=== PATIENT | female | born 1940 | race Caucasian/White ===

== ENCOUNTER 2018-05-12 20:30 | Inpatient (IN) | payer MEDICARE, SELFPAY ==
[~2018-05-12] VITALS: Ht 170.2 cm; Wt 84.6 kg
[2018-05-12 21:18] LABS: BASOPHILS ABSOLUTE AUTO 0.01 K/mm3 (0.00-0.23); BASOPHILS PERCENT AUTO 0 % (0-2); EOSINOPHILS ABSOLUTE AUTO 0.06 K/mm3 (0.00-0.68); EOSINOPHILS PERCENT AUTO 1 % (0-6); Hematocrit 43.4 % (33.0-51.0); IMMATURE GRAN ABSOLUTE AUTO 0.01 K/mm3 (0.00-0.10); IMMATURE GRAN PERCENT AUTO 0 % (0-1); LYMPHOCYTES ABSOLUTE AUTO 1.54 K/mm3 (0.84-5.20); LYMPHOCYTES PERCENT AUTO 31 % (21-46); MONOCYTES ABSOLUTE AUTO 0.89 K/mm3 (0.16-1.47); MONOCYTES PERCENT AUTO 18 % (4-13); Mean Corpuscular HGB 31.2 pg (26.0-34.0); Mean Corpuscular HGB Conc 34.6 g/dL (31.5-36.5); Mean Corpuscular Volume 90 fL (80-100); Mean Platelet Volume 10.4 fL (9.1-12.4); NEUTROPHILS ABSOLUTE AUTO 2.49 K/mm3 (1.96-9.15); NEUTROPHILS PERCENT AUTO 50 % (41-73); Platelet Count 144 K/mm3 (150-400); RDW Coefficient Variation 12.7 % (11.7-14.2); RDW Standard Deviation 42.5 fL (35.1-46.3); Red Blood Cell Count 4.81 M/mm3 (3.80-5.20)
[2018-05-12 21:32] LABS: Alanine Aminotransfer (ALT/SGP 31 U/L (12-78); Albumin, Blood 3.7 g/dL (3.4-5.0); Albumin/Globulin Ratio 1.1 (0.8-1.8); Alk Phos 105 U/L (50-136); Anion Gap 8 mmol/L (6-16); Aspartate Aminotrans (AST/SGOT 29 U/L (12-37); Bilirubin, Total 0.5 mg/dL (0.1-1.0); Blood Urea Nitrogen 9 mg/dL (8-24); Bun/Creatinine Ratio 14.2 (12.0-20.0); CO2, Blood 28 mmol/L (21-32); Calcium, Blood 8.8 mg/dL (8.5-10.1); Chloride, Blood 89 mmol/L (98-108); Creatinine, Blood 0.63 mg/dL (0.40-1.00); Globulin, Blood 3.5 g/dL (2.2-4.0); Glomerular Filtration Rate >60 (60-); Glucose, Blood 104 mg/dL (70-99); Potassium, Blood 3.3 mmol/L (3.5-5.5); Sodium, Blood 125 mmol/L (136-145); Total Protein, Blood 7.2 g/dL (6.4-8.2); Troponin I 0.016 ng/mL (0.000-0.040)
[2018-05-12] MEDS ORDERED: PRED20 PO (21:40)
[2018-05-12] MEDS ORDERED: Lotensin40 MG PO (21:41)
[2018-05-12] MEDS ORDERED: Nexium40 MG PO (21:42)
[2018-05-12] MEDS ORDERED: MICROZIDE12.5 M1 PO (21:42)
[2018-05-12] MEDS ORDERED: METO50ER PO (21:43)
[2018-05-12] MEDS ORDERED: POTA8 PO (21:43)
[2018-05-12] MEDS ORDERED: ATOR40TA PO (21:43)
[2018-05-12] MEDS ORDERED: DOXY100 PO (21:44)
[2018-05-12] MEDS ORDERED: NIFE60ER PO (21:44)
[2018-05-12] MEDS ORDERED: ASPI325 PO (21:44)
--- NOTE | 2018-05-13 01:15 | NUR ---
PT ARRIVAL. PT ARRIVED ON THE UNIT APROX 0100. PT A&Ox4, ABLE TO TRANSFER HERSELF FROM THE GURNEY TO THE BED. PT ON RA AT 90%. VS STABLE, HR R IN THE 90'S-100'S, L/S COARSE T/O W/CRACKELS. AFTER ASSESSMENT PT REQUIRED 1L O2. PT HAS TOLERATED THIS WELL WITH O2 STATS >90%. BT PRESENT AND HYPOACTIVE, PT STATES NO BM FOR 5 DAYS. NO EDEMA NOTED ON ASSESSMENT. WILL CONTINUE TO MONITOR.
[2018-05-13 03:43] LABS: Hematocrit 42.2 % (33.0-51.0); Hemoglobin 14.5 g/dL (11.5-16.0); Mean Corpuscular HGB 31.7 pg (26.0-34.0); Mean Corpuscular HGB Conc 34.4 g/dL (31.5-36.5); Mean Corpuscular Volume 92 fL (80-100); Mean Platelet Volume 10.6 fL (9.1-12.4); Platelet Count 111 K/mm3 (150-400); RDW Coefficient Variation 12.7 % (11.7-14.2); RDW Standard Deviation 43.1 fL (35.1-46.3); Red Blood Cell Count 4.58 M/mm3 (3.80-5.20)
[2018-05-13 03:56] LABS: Anion Gap 12 mmol/L (6-16); Blood Urea Nitrogen 9 mg/dL (8-24); CO2, Blood 24 mmol/L (21-32); Calcium, Blood 8.3 mg/dL (8.5-10.1); Chloride, Blood 90 mmol/L (98-108); Creatinine, Blood 0.56 mg/dL (0.40-1.00); Glomerular Filtration Rate >60 (60-); Glucose, Blood 172 mg/dL (70-99); Potassium, Blood 3.1 mmol/L (3.5-5.5); Sodium, Blood 126 mmol/L (136-145)
--- NOTE | 2018-05-13 06:31 | NUR ---
SHIFT SUMMARY. NO ACUTE CHAGENES NOTED. PT'S AM LABS SHOWED LOW POTASSIUM (SEE LABS) PROVIDER CALLED AND ORDERS OBTAINED. PT ALSO STATED HER DESIRE TO BE A FULL CODE. PROVIDER WAS CALLED AND ORDERS OBTAINED TO CHANGE PT FROM DNR TO FULL CODE. CALL LIGHT IN REACH, BED IS LOCKED AND LOW. WILL CONTINUE TO MONITOR UNTIL REPORT IS GIVEN TO ONCOMING RN.
--- NOTE | 2018-05-13 17:20 | NUR ---
SHIFT SUMMARY Assumed care of pt at 0700. Report received from Mi TEJEDA. Pt on 1 LPM SC. No telemetry in place. Pt is medical floor status without telemetry. Pt OOB several times to use bathroom. Steady on feet. Tolerates activity well. Pt removed nasal cannula. Cannula replaced as SpO2 was 87% on room air. Pt assigned to room 338. Report given to medical floor nurse. Pt to be transferred with belongings, chart, and medications when room is ready.
--- NOTE | 2018-05-13 19:10 | NUR ---
PT PCU TRANSFER THIS PM. PT AXO X4. DENIES PAIN. DENIES N/V. DENIES SOB AT REST. DYSPNEA UPON EXERTION. CALL LIGHT IN REACH. BED IN LOWEST POSITION.
--- NOTE | 2018-05-14 05:19 | NUR ---
SHIFT SUMMARY NO ACUTE CHANGES THIS SHIFT. PT CONTINUES ON 2 L O2 NC, SOME SOB W/ EXERTION BUT OVERALL PT FEELS MUCH IMPROVED. LUNG SOUNDS MINIMALLY COARSE IN THE BASES AND DIMINISHED THROUGHOUT. NO COMPLAINTS OF PAIN. VSS. WILL CONTINUE TO MONITOR AND REPORT TO DAY RN.
[2018-05-14 05:43] LABS: Anion Gap 8 mmol/L (6-16); Blood Urea Nitrogen 10 mg/dL (8-24); Bun/Creatinine Ratio 15.8 (12.0-20.0); CO2, Blood 26 mmol/L (21-32); Calcium, Blood 8.4 mg/dL (8.5-10.1); Chloride, Blood 93 mmol/L (98-108); Creatinine, Blood 0.63 mg/dL (0.40-1.00); Glomerular Filtration Rate >60 (60-); Glucose, Blood 144 mg/dL (70-99); Potassium, Blood 3.9 mmol/L (3.5-5.5); Sodium, Blood 127 mmol/L (136-145)
--- NOTE | 2018-05-14 09:21 | NUR ---
PT REPORTS SHE HAS NOT TAKEN PROCARDIA FOR A LONG TIME AT HOME, REFUSED IT THIS AM. DR PEÑALOZA NOTIFIED AND IT HAS BEEN DC'D. PT ALSO REQUESTING MILD STOOL SOFTENER, ORDER RECEIVED FOR COLACE 100MG BID. SODIUM OF 127, PER DR PEÑALOZA GIVE 1L NS AND ENCOURAGE EATING SOLID FOODS.
--- NOTE | 2018-05-14 18:15 | NUR ---
SHIFT SUMMARY- PT A/OX4, INDEP INTO BATHROOM. PT DENIES ANY COMPLAINTS. LS COARSE WITH WHEEZE, ON RA, MINIMAL SOB WITH EXERTION, OCC PROD COUGH OF CLEAR SPUTUM. TRACE BLE. PT CHANGED TO ORAL PREDNISONE, ANTIBIOTICS DC'D. SODIUM OF 127, 1L NS GIVEN, PT WITH INCREASED APPETITE TODAY. COLACE STARTED FOR NO BM. NO OTHER ACUTE CHANGES THIS SHIFT.
--- NOTE | 2018-05-15 04:10 | NUR ---
SHIFT SUMMARY LUNG SOUNDS CONTINUE TO BE COARSE AND WHEEZY THROUGHOUT. PT HAS MOSTLY NON PRODUCTIVE INTERMITTENT DRY NAGGING COUGH. PT ON RA W/ O2 SATS IN THE LOW TO MID 90'S. PT HAD UNEVENFUL NIGHT. SLEEPING ON AND OFF THROUGHOUT THE NIGHT. NO COMPLAINTS OF PAIN OR DISCOMFORT. VSS. OTHERWISE NO ACUE CHANGES. WILL CONTINUE TO MONITOR AND REPORT TO DAY RN.
[2018-05-15] MEDS ORDERED: NIFE60ER PO (07:37)
--- NOTE | 2018-05-15 09:20 | NUR ---
PT REPORTS SHE WAS CONFUSED YESTERDAY AND DOES TAKE NIFEDIPINE OR PROCARDIA AT HOME, DR PEÑALOZA NOTIFIED AND PLACED BACK ON MEDICATION.
--- NOTE | 2018-05-15 16:34 | NUR ---
SHIFT SUMMARY- PT A/O X4, INDEP IN ROOM. PT DENIES ANY COMPLAINTS T/O SHIFT. MILD SOB WITH EXERTION, LS COARSE WITH WHEEZES, OCC PRODUCTIVE COUGH WITH YELLOW SPPUTUM. PT REMAINS ON RA. POSS D/C HOME TOMORROW. NO OTHER ACUTE CHANGES THIS SHIFT.
--- NOTE | 2018-05-16 05:26 | NUR ---
SHIFT SUMMARY NO ACUTE CHANGES OVERNIGHT. PT CONTINUES TO DO WELL ON RA WITH O2 SATS AT 93%. BLOOD PRESSURE IMPROVED AT START OF SHIFT BUT HIGH AGAIN THIS AM. HOME BLOOD PRESSURE MED RESTARTED YESTERDAY, WILL MONITOR. NO COMPLAINTS OF PAIN. VERY MINIMAL SOB W/ EXERTION. PLAN FOR PT TO D/C HOME TODAY.
[2018-05-16] MEDS ORDERED: DELTASONE20 MG PO (10:44)
[2018-05-16] MEDS ORDERED: BUDE6HFA INH (10:45)
--- NOTE | 2018-05-16 11:25 | NUR ---
SHIFT SUMMARY/DC PT HAS HAD NO ACUTE CHANGES THIS SHIFT, NO COMPLAINTS OF ANY KIND. REVIEWED DC INSTRUCTIONS W/PT WHO VERBALIZED UNDERSTANDING. PT WAS TRANSPORTED VIA W/C TO DC IN PRIVATE VEHICLE @ [id number]
== END 2018-05-16 11:22 | disposition home or self-care (01) | DRG 202 ==
LOC: DELPENDDIS → ER 20:30 → PCU 23:35 → MEDS 05-13 18:02 → ENPENDDIS 05-15 09:32 → MEDS 05-16 11:22
PROVIDERS: Emergency Medicine; Hospitalist; Nurse Practitioner Acute Care; ADMIT Internal Medicine
DX: J45.901 Unspecified asthma with (acute) exacerbation (principal); E87.1 Hypo-osmolality and hyponatremia; I10 Essential (primary) hypertension; D69.6 Thrombocytopenia, unspecified; K21.9 Gastro-esophageal reflux disease without esophagitis; E87.6 Hypokalemia; E78.5 Hyperlipidemia, unspecified; F17.210 Nicotine dependence, cigarettes, uncomplicated; Z66 Do not resuscitate; Z79.52 Long term (current) use of systemic steroids; Z79.82 Long term (current) use of aspirin; Z79.899 Other long term (current) drug therapy
CPT/HCPCS: 36415; 71046; 80048; 80053; 83605; 83880; 84145; 84484; 85025; 85027; 87040; 93005; 93010; 94640; 94760; 94761; 96365; 96367; 96375; 99285-25; J0456; J0696; J2405; J2930; J3480; J7030; J7050; J7120

== ENCOUNTER 2019-01-05 14:29 | Emergency (ER) | payer MEDICARE, OTHER ==
[~2019-01-05] VITALS: Ht 170.2 cm; Wt 86.2 kg
[~2019-01-05 14:29] MED LIST: ASPI325 PO; ATOR40TA PO; BUDE6HFA INH; DELTASONE20 MG PO; DOXY100 PO; Lotensin40 MG PO; METO50ER PO; MICROZIDE12.5 M1 PO; NIFE60ER PO; Nexium40 MG PO; POTA8 PO; PRED20 PO
[2019-01-05] MEDS ORDERED: HYDCHL12.5 PO (14:45)
[2019-01-05] MEDS ORDERED: Cephalexin500 MG PO (14:45)
[2019-01-05] MEDS ORDERED: Benazepril HCl40 MG PO (14:46)
[2019-01-05 14:50] LABS: Source, Urine Clean Catch
[2019-01-05 15:02] LABS: BASOPHILS ABSOLUTE AUTO 0.04 K/mm3 (0.00-0.23); BASOPHILS PERCENT AUTO 0 % (0-2); EOSINOPHILS PERCENT AUTO 2 % (0-6); Hemoglobin 14.2 g/dL (11.5-16.0); IMMATURE GRAN ABSOLUTE AUTO 0.05 K/mm3 (0.00-0.10); IMMATURE GRAN PERCENT AUTO 1 % (0-1); LYMPHOCYTES ABSOLUTE AUTO 2.04 K/mm3 (0.84-5.20); LYMPHOCYTES PERCENT AUTO 19 % (21-46); MONOCYTES PERCENT AUTO 10 % (4-13); Mean Corpuscular HGB 31.3 pg (26.0-34.0); Mean Corpuscular HGB Conc 33.8 g/dL (31.5-36.5); Mean Corpuscular Volume 93 fL (80-100); Mean Platelet Volume 9.9 fL (9.1-12.4); NEUTROPHILS ABSOLUTE AUTO 7.58 K/mm3 (1.96-9.15); NEUTROPHILS PERCENT AUTO 69 % (41-73); Platelet Count 201 K/mm3 (150-400); RDW Coefficient Variation 13.2 % (11.7-14.2); RDW Standard Deviation 45.3 fL (35.1-46.3); Red Blood Cell Count 4.53 M/mm3 (3.80-5.20); White Blood Cell Count 11.01 K/mm3 (4.00-11.30)
[2019-01-05 15:03] LABS: Bilirubin, Urine Neg (Neg); Blood, Urine 3+ (Neg); Glucose Qualitative, Urine Neg (Neg); Ketones, Urine Neg (Neg); Leukocyte Esterase, Urine Neg (Neg); Nitrite, Urine Neg (Neg); Protein, Urine Neg (Neg); Urobilinogen, Urine NORM (Normal)
[2019-01-05 15:05] LABS: Alanine Aminotransfer (ALT/SGP 25 U/L (12-78); Albumin, Blood 3.6 g/dL (3.4-5.0); Alk Phos 112 U/L (50-136); Anion Gap 6 mmol/L (6-16); Aspartate Aminotrans (AST/SGOT 22 U/L (12-37); Bilirubin, Total 0.6 mg/dL (0.1-1.0); Blood Urea Nitrogen 13 mg/dL (8-24); Bun/Creatinine Ratio 15.9 (12.0-20.0); CO2, Blood 26 mmol/L (21-32); Calcium, Blood 8.9 mg/dL (8.5-10.1); Chloride, Blood 99 mmol/L (98-108); Creatinine, Blood 0.82 mg/dL (0.40-1.00); Globulin, Blood 3.5 g/dL (2.2-4.0); Glomerular Filtration Rate >60 (60-); Glucose, Blood 147 mg/dL (70-99); Potassium, Blood 3.6 mmol/L (3.5-5.5); Sodium, Blood 131 mmol/L (136-145); Total Protein, Blood 7.1 g/dL (6.4-8.2); Troponin I <0.015 ng/mL (0.000-0.040)
[2019-01-05 15:14] LABS: Appearance, Urine Clear (Clear); Color, Urine Yellow (P-Yellow)
[2019-01-05 15:15] LABS: Bacteria Not Seen /hpf; Mucus Light (0-Heavy); Squamous Epithelial Cells Not Seen /hpf (Few); White Blood Cells, Urine 0-2 /hpf (0-5)
== END 2019-01-05 16:15 | disposition home or self-care (01) ==
LOC: ER 14:29
PROVIDERS: Physician Assistant
DX: G45.9 Transient cerebral ischemic attack, unspecified (principal); J45.909 Unspecified asthma, uncomplicated; I71.4 Abdominal aortic aneurysm, without rupture; R01.1 Cardiac murmur, unspecified; Z79.899 Other long term (current) drug therapy; Z79.82 Long term (current) use of aspirin; Z87.891 Personal history of nicotine dependence
CPT/HCPCS: 36415; 70450; 80053; 81001; 84484; 85025; 93005; 93010; 96360; 99284-25; J7030

== ENCOUNTER 2019-01-30 20:14 | Emergency (ER) | payer MEDICARE, OTHER ==
[~2019-01-30] VITALS: Ht 170.2 cm; Wt 86.2 kg
[~2019-01-30 20:14] MED LIST changes: +Benazepril HCl40 MG PO; +Cephalexin500 MG PO; +HYDCHL12.5 PO
[2019-01-30] MEDS ORDERED: OMEP20ER PO (20:52)
== END 2019-01-30 21:19 | disposition home or self-care (01) ==
LOC: ER 20:14
DX: T50.2X1A Poisoning by carbonic-anhydrase inhibitors, benzothiadiazides and other diuretics, accidental (unintentional), initial encounter (principal); T50.3X1A Poisoning by electrolytic, caloric and water-balance agents, accidental (unintentional), initial encounter; T44.7X1A Poisoning by beta-adrenoreceptor antagonists, accidental (unintentional), initial encounter; T46.4X1A Poisoning by angiotensin-converting-enzyme inhibitors, accidental (unintentional), initial encounter; J45.909 Unspecified asthma, uncomplicated; F17.200 Nicotine dependence, unspecified, uncomplicated; Z79.899 Other long term (current) drug therapy; Z79.84 Long term (current) use of oral hypoglycemic drugs; Z79.82 Long term (current) use of aspirin
CPT/HCPCS: 99283

== ENCOUNTER 2019-03-21 05:09 | Emergency (ER) | payer MEDICARE, OTHER ==
[~2019-03-21] VITALS: Ht 170.2 cm; Wt 88.9 kg
[~2019-03-21 05:09] MED LIST changes: +OMEP20ER PO
[2019-03-21 05:33] LABS: BASOPHILS ABSOLUTE AUTO 0.05 K/mm3 (0.00-0.23); BASOPHILS PERCENT AUTO 1 % (0-2); EOSINOPHILS ABSOLUTE AUTO 0.15 K/mm3 (0.00-0.68); EOSINOPHILS PERCENT AUTO 2 % (0-6); Hematocrit 41.4 % (33.0-51.0); Hemoglobin 13.9 g/dL (11.5-16.0); IMMATURE GRAN ABSOLUTE AUTO 0.03 K/mm3 (0.00-0.10); IMMATURE GRAN PERCENT AUTO 0 % (0-1); LYMPHOCYTES ABSOLUTE AUTO 2.13 K/mm3 (0.84-5.20); LYMPHOCYTES PERCENT AUTO 31 % (21-46); MONOCYTES PERCENT AUTO 12 % (4-13); Mean Corpuscular HGB 31.2 pg (26.0-34.0); Mean Corpuscular HGB Conc 33.6 g/dL (31.5-36.5); Mean Corpuscular Volume 93 fL (80-100); Mean Platelet Volume 9.8 fL (9.1-12.4); NEUTROPHILS ABSOLUTE AUTO 3.64 K/mm3 (1.96-9.15); NEUTROPHILS PERCENT AUTO 54 % (41-73); Platelet Count 201 K/mm3 (150-400); RDW Coefficient Variation 13.2 % (11.7-14.2); Red Blood Cell Count 4.46 M/mm3 (3.80-5.20)
[2019-03-21 05:59] LABS: Alanine Aminotransfer (ALT/SGP 19 U/L (12-78); Albumin, Blood 3.8 g/dL (3.4-5.0); Albumin/Globulin Ratio 1.1 (0.8-1.8); Alk Phos 107 U/L (50-136); Anion Gap 6 mmol/L (6-16); Aspartate Aminotrans (AST/SGOT 16 U/L (12-37); Bilirubin, Total 0.3 mg/dL (0.1-1.0); Blood Urea Nitrogen 14 mg/dL (8-24); Bun/Creatinine Ratio 15.3 (12.0-20.0); CO2, Blood 29 mmol/L (21-32); Calcium, Blood 9.1 mg/dL (8.5-10.1); Chloride, Blood 100 mmol/L (98-108); Creatinine, Blood 0.91 mg/dL (0.40-1.00); Globulin, Blood 3.5 g/dL (2.2-4.0); Glomerular Filtration Rate >60 (60-); Glucose, Blood 94 mg/dL (70-99); Potassium, Blood 3.6 mmol/L (3.5-5.5); Sodium, Blood 135 mmol/L (136-145); Total Protein, Blood 7.3 g/dL (6.4-8.2); Troponin I <0.015 ng/mL (0.000-0.040)
[2019-03-21 06:11] LABS: Source, Urine Clean Catch
[2019-03-21 06:14] LABS: Bilirubin, Urine Neg (Neg); Blood, Urine 2+ (Neg); Glucose Qualitative, Urine Neg (Neg); Ketones, Urine Neg (Neg); Leukocyte Esterase, Urine Neg (Neg); Nitrite, Urine Neg (Neg); Protein, Urine Neg (Neg); Specific Gravity, Urine 1.005 (1.003-1.022); Urobilinogen, Urine NORM (Normal)
[2019-03-21 06:23] LABS: Appearance, Urine Clear (Clear); Color, Urine Yellow (P-Yellow)
[2019-03-21 06:25] LABS: Bacteria Rare /hpf; Red Blood Cells, Urine 0-2 /hpf (0-2); Squamous Epithelial Cells Rare /hpf (Few); White Blood Cells, Urine Not Seen /hpf (0-5)
[2019-03-21] MEDS ORDERED: Ativan0.5 MG PO (06:53)
== END 2019-03-21 07:00 | disposition home or self-care (01) ==
LOC: ER 05:09
PROVIDERS: Emergency Medicine
DX: G45.9 Transient cerebral ischemic attack, unspecified (principal); F41.9 Anxiety disorder, unspecified; Z79.899 Other long term (current) drug therapy; Z79.82 Long term (current) use of aspirin; J45.909 Unspecified asthma, uncomplicated; I10 Essential (primary) hypertension; K21.9 Gastro-esophageal reflux disease without esophagitis; E78.5 Hyperlipidemia, unspecified; Z87.891 Personal history of nicotine dependence
CPT/HCPCS: 70450; 80053; 81001; 84484; 85025; 93005; 93010; 99284-25